=== PATIENT | female | born 1965 | race Caucasian/White ===

== ENCOUNTER 2018-04-27 20:19 | Emergency (ER) | payer MEDICARE, OTHER ==
[2018-04-27 20:29] VITALS: BP 127/84; PULSE 113; RESP 20; TEMP 98.7
--- NOTE | 2018-04-27 22:51 | XR ---
EXAMINATION TYPE: XR Hip LT and AP Pelvis DATE OF EXAM: 04/27/2018 COMPARISON: NONE HISTORY: Left hip pain TECHNIQUE: A single AP view of the pelvis is obtained. Two views of the left hip are obtained. FINDINGS: The pelvic ring is intact. Sacroiliac joints are intact. Proximal left femur and hip joint appear normal for age. IMPRESSION: Negative pelvis and left hip exam. No sign of hip dysplasia.
--- NOTE | 2018-04-27 23:15 | ED ---
General Adult HPI - General Chief complaint: Extremity Injury, Lower Stated complaint: Hip pain Time Seen by Provider: 04/27/18 21:40 Source: patient, family Mode of arrival: ambulatory Limitations: no limitations - History of Present Illness Initial comments: 53-year-old female presenting for evaluation of left hip pain. She states that it occurred while she was getting out of bed 4 days ago and she heard a pop. She's been able to ambulate on it but states since then she is continued to have pain. Pain is in the left lateral aspect of the hip and radiates down her thigh. Ambulation and weightbearing worsen her symptoms and rest and relaxation present. She has been taking all medications without improvement. She has not discussed with her primary care physician or orthopedic surgeon. - Related Data Home Medications Medication Instructions Recorded Confirmed ALPRAZolam [Xanax] 0.25 mg PO BID 07/30/14 08/25/16 HYDROcodone/APAP 10-325MG [[place] 1 tab PO Q4HR PRN 07/30/14 08/25/16 10] Insulin Glargine [Lantus] 50 unit SQ BID 07/30/14 08/25/16 Albuterol Nebulized [Ventolin 2.5 mg INHALATION RT-Q6H PRN 07/19/16 08/25/16 Nebulized] Insulin Lispro [humaLOG Kwikpen] 24 units SQ AC-TID 07/19/16 08/25/16 Insulin Lispro [humaLOG Kwikpen] See Protocol SQ AC-TID 07/19/16 08/25/16 Levothyroxine Sodium [Synthroid] 175 mcg PO DAILY 07/19/16 08/25/16 Previous Rx's Medication Instructions Recorded Ibuprofen [Motrin] 600 mg PO Q6HR PRN #20 tab 07/19/16 Acetaminophen with Codeine 1 tab PO Q4H #20 tab 08/25/16 [Tylenol w/codeine #3] Famotidine [Pepcid] 40 mg PO BID #30 tab 08/25/16 hydrOXYzine HCL [Atarax] 25 mg PO TID #30 tab 08/25/16 Allergies Allergy/AdvReac Type Severity Reaction Status Date / Time azithromycin Allergy Rash/Hives Verified 04/27/18 20:30 erythromycin base Allergy Rash/Hives Verified 08/25/16 08:00 [Erythromycin Base] gabapentin [From Neurontin] Allergy Dyspnea Verified 08/25/16 08:00 pregabalin [From Lyrica] Allergy Rash/Hives Verified 08/25/16 08:00 morphine AdvReac Nausea & Verified 04/27/18 20:30 Vomiting Review of Systems ROS Statement: Those systems with pertinent positive or pertinent negative responses have been documented in the HPI. ROS Other: All systems not noted in ROS Statement are negative. Constitutional: Denies: fever, chills Eyes: Denies: eye pain, vision change ENT: Denies: ear pain, throat pain Respiratory: Denies: cough, dyspnea Cardiovascular: Denies: chest pain, palpitations Endocrine: Denies: fatigue, polydipsia Gastrointestinal: Denies: abdominal pain, nausea, vomiting Genitourinary: Denies: urgency, dysuria Musculoskeletal: Reports: arthralgia (Left hip). Denies: back pain Skin: Denies: rash, lesions Neurological: Denies: headache, weakness Psychiatric: Denies: anxiety, depression Hematological/Lymphatic: Denies: easy bleeding, easy bruising Past Medical History Past Medical History: Asthma, COPD, Diabetes Mellitus, Fibromyalgia, Hearing Disorder / Deafness, Hyperlipidemia, Osteoarthritis (OA), Thyroid Disorder Additional Past Medical History / Comment(s): MIGRAINE HEADACHE, IRRITABLE BOWEL History of Any Multi-Drug Resistant Organisms: MRSA Date of last positivie culture/infection: [id number] MDRO Source:: ABDOMEN Past Surgical History: Hernia Repair, Hysterectomy, Orthopedic Surgery Additional Past Surgical History / Comment(s): CARPAL TUNNEL,KNEE ARTHROSCOPIC, PICC LINE,RIGHT SHOULDER, ablation left thigh Past Anesthesia/Blood Transfusion Reactions: No Reported Reaction Past Psychological History: Anxiety Smoking Status: Former smoker Past Alcohol Use History: None Reported Past Drug Use History: None Reported - Past Family History Father Family Medical History: Cancer General Exam Limitations: no limitations General appearance: alert, in no apparent distress Head exam: Present: atraumatic, normocephalic, normal inspection Eye exam: Present: normal appearance, PERRL, EOMI. Absent: scleral icterus, conjunctival injection, periorbital swelling ENT exam: Present: normal exam, mucous membranes moist Neck exam: Present: normal inspection. Absent: tenderness, meningismus, lymphadenopathy Respiratory exam: Present: normal lung sounds bilaterally. Absent: respiratory distress, wheezes, rales, rhonchi, stridor Cardiovascular Exam: Present: normal rhythm, tachycardia GI/Abdominal exam: Present: soft, normal bowel sounds. Absent: distended, tenderness, guarding, rebound, rigid Rectal exam: Present: deferred Extremities exam: Present: full ROM, tenderness (Lateral aspect of the left hip. No overlying erythema, effusion, or other discoloration. It is not warm to palpation.), normal capillary refill. Absent: normal inspection, pedal edema , joint swelling, calf tenderness Back exam: Present: normal inspection, full ROM Neurological exam: Present: alert, oriented X3 Psychiatric exam: Present: normal affect, normal mood Skin exam: Present: warm, dry, intact Course Vital Signs 04/27/18 20:26 Temperature 98.7 F Pulse Rate 113 H Respiratory 20 Rate Blood Pressure 127/84 O2 Sat by Pulse 97 Oximetry Medical Decision Making - Medical Decision Making 53-year-old female presented for evaluation of left hip pain for the last 4 days. On physical examination she appears to be in no apparent distress and is tachycardic but otherwise vitals are stable. There is tenderness to palpation of the left lateral hip and with active range of motion she has pain however this is been minimal in passive range of motion. Distal pulses, motor function, and sensation are intact. X-ray revealed no significant abnormality of the hip joint and on reevaluation she had no change in her exam. She was informed of all results and through shared decision making it was determined that she be discharged with instructions to follow-up with her primary care physician and orthopedic surgeon. The patient has a pain contract in the lobby given any narcotics however was advised to take anti-inflammatories as this was likely an inflammatory process. Further given return instructions. The patient acknowledged an understanding of all formation provided and agreed with this plan care. Disposition Clinical Impression: Left hip pain Disposition: HOME SELF-CARE Condition: Stable Instructions: Hip Pain (ED) Is patient prescribed a controlled substance at d/c from ED?: No Referrals: Bienvenido Maldonado MD [Primary Care Provider] - 1-2 days Time of Disposition: 23:15
== END 2018-04-27 23:22 | disposition home or self-care (01) ==
LOC: EC 20:19
DX: M25.552 Pain in left hip (principal); J44.9 Chronic obstructive pulmonary disease, unspecified; E11.9 Type 2 diabetes mellitus without complications; M79.7 Fibromyalgia; E07.9 Disorder of thyroid, unspecified; F41.9 Anxiety disorder, unspecified; Z86.14 Personal history of Methicillin resistant Staphylococcus aureus infection; Z87.891 Personal history of nicotine dependence; Z79.4 Long term (current) use of insulin; Z79.899 Other long term (current) drug therapy; Z88.1 Allergy status to other antibiotic agents; Z88.5 Allergy status to narcotic agent; Z88.8 Allergy status to other drugs, medicaments and biological substances
CPT/HCPCS: 73502; 99283

== ENCOUNTER 2018-09-01 22:18 | Emergency (ER) | payer MEDICARE, OTHER ==
[2018-09-01] MEDS ORDERED: KETOROLAC 30 MG/ML 1 ML VIAL IM STA (22:43)
[2018-09-01] MEDS ORDERED: HYDROmorphone 1 MG/ML 1 ML SYRINGE IM STA (22:43)
[2018-09-01] MEDS ORDERED: METHOCARBAMOL 500 MG TAB PO STA (22:44)
[2018-09-01] MEDS ORDERED: LIDOCAINE 5% PATCH TOPICAL STA (22:44)
--- NOTE | 2018-09-01 23:11 | XR ---
EXAMINATION TYPE: XR shoulder complete RT DATE OF EXAM: 09/01/2018 COMPARISON: NONE HISTORY: Right shoulder pain TECHNIQUE: 3 views FINDINGS: There is some calcification in the humeral head consistent with small areas of bone infarct . There is mild spurring of the glenohumeral joint. I see no fracture nor dislocation. Joint spaces a re fairly normal. IMPRESSION: Minor degenerative changes. No fracture.
--- NOTE | 2018-09-01 23:54 | ED ---
Upper Extremity HPI - General Chief Complaint: Extremity Injury, Upper Stated Complaint: Shoulder pain Time Seen by Provider: 09/01/18 22:28 Source: patient, family Mode of arrival: ambulatory Limitations: no limitations - History of Present Illness Initial Comments: Patient is a 53-year-old female presenting for right shoulder discomfort. She states that it has been worsening over the last 3 weeks and she denies any injury. She states that it is getting so bad that she can't sleep. She denies any chest pain, shortness of breath, cough, fever/chills. She called her pain management doctor and they advised her to come to the emergency department if she got no relief on her [place] tens at home. She denies any numbness or paresthesias as well as neck pain and states that the majority of pain is around the shoulder and shoulder blade it is worse with movement. - Related Data Home Medications Medication Instructions Recorded Confirmed ALPRAZolam [Xanax] 0.25 mg PO BID 07/30/14 08/25/16 HYDROcodone/APAP 10-325MG [[place] 1 tab PO Q4HR PRN 07/30/14 08/25/16 10] Insulin Glargine [Lantus] 50 unit SQ BID 07/30/14 08/25/16 Albuterol Nebulized [Ventolin 2.5 mg INHALATION RT-Q6H PRN 07/19/16 08/25/16 Nebulized] Insulin Lispro [humaLOG Kwikpen] 24 units SQ AC-TID 07/19/16 08/25/16 Insulin Lispro [humaLOG Kwikpen] See Protocol SQ AC-TID 07/19/16 08/25/16 Levothyroxine Sodium [Synthroid] 175 mcg PO DAILY 07/19/16 08/25/16 Previous Rx's Medication Instructions Recorded Ibuprofen [Motrin] 600 mg PO Q6HR PRN #20 tab 07/19/16 Acetaminophen with Codeine 1 tab PO Q4H #20 tab 08/25/16 [Tylenol w/codeine #3] Famotidine [Pepcid] 40 mg PO BID #30 tab 08/25/16 hydrOXYzine HCL [Atarax] 25 mg PO TID #30 tab 08/25/16 Lidocaine 5% Patch [Lidoderm] 1 patch TOPICAL DAILY #10 patch 09/02/18 Methocarbamol [Robaxin-750] 750 mg PO TID PRN #21 tablet 09/02/18 Allergies Allergy/AdvReac Type Severity Reaction Status Date / Time azithromycin Allergy Rash/Hives Verified 09/01/18 22:26 erythromycin base Allergy Rash/Hives Verified 09/01/18 22:26 [Erythromycin Base] gabapentin [From Neurontin] Allergy Dyspnea Verified 09/01/18 22:26 pregabalin [From Lyrica] Allergy Rash/Hives Verified 09/01/18 22:26 morphine AdvReac Nausea & Verified 09/01/18 22:26 Vomiting Review of Systems ROS Statement: Those systems with pertinent positive or pertinent negative responses have been documented in the HPI. Constitutional: Negative for chills, fatigue and fever. HENT: Negative for congestion. Respiratory: Negative for chest tightness, shortness of breath and wheezing. Negative for cough Cardiovascular: Negative for chest pain and palpitations. Gastrointestinal: Negative for abdominal pain. Negative for abdominal distention , diarrhea, nausea and vomiting. Genitourinary: Negative for dysuria. Musculoskeletal: Negative for back pain, neck pain and neck stiffness. Positive for right shoulder pain Skin: Negative for color change. Neurological: Negative for dizziness, speech difficulty, weakness and light- headedness. Psychiatric/Behavioral: Negative for agitation and confusion. Negative for anxiety ROS Other: All systems not noted in ROS Statement are negative. Past Medical History Past Medical History: Asthma, COPD, Diabetes Mellitus, Fibromyalgia, Hearing Disorder / Deafness, Hyperlipidemia, Osteoarthritis (OA), Thyroid Disorder Additional Past Medical History / Comment(s): MIGRAINE HEADACHE, IRRITABLE BOWEL History of Any Multi-Drug Resistant Organisms: MRSA Date of last positivie culture/infection: [id number] MDRO Source:: ABDOMEN Past Surgical History: Hernia Repair, Hysterectomy, Orthopedic Surgery Additional Past Surgical History / Comment(s): CARPAL TUNNEL,KNEE ARTHROSCOPIC, PICC LINE,RIGHT SHOULDER, ablation left thigh Past Anesthesia/Blood Transfusion Reactions: No Reported Reaction Past Psychological History: Anxiety Smoking Status: Former smoker Past Alcohol Use History: None Reported Past Drug Use History: None Reported - Past Family History Father Family Medical History: Cancer General Exam - General Exam Comments Initial Comments: Constitutional: Pt is oriented to person, place, and time. Pt appears well- developed and well-nourished. No distress. HENT: Head: Normocephalic and atraumatic. Eyes: EOM are normal. Neck: Normal range of motion. Neck supple. Cardiovascular: Normal rate, regular rhythm, S1 normal, S2 normal and normal heart sounds. Exam reveals no gallop and no friction rub. No murmur heard. Pulmonary/Chest: Effort normal and breath sounds normal. No tachypnea and no bradypnea. No respiratory distress. No wheezes or rales noted. Abdominal: Soft. Bowel sounds are normal. Pt exhibits no shifting dullness, no distension, no pulsatile liver, no fluid wave, no abdominal bruit and no ascites. There is no tenderness. There is no rigidity, no rebound, no guarding, no tenderness at McBurney's point and negative Chen's sign. Musculoskeletal: Decreased range of motion of the right shoulder with mild diffuse tenderness of the shoulder. Decreased abduction passively as well as extension and flexion. No cervical's point tenderness or thoracic spine tenderness Neurological: Pt is alert and oriented to person, place, and time. No cranial nerve deficit. Skin: Skin is warm and dry. No rash noted. Pt is not diaphoretic. No erythema. No pallor. Psychiatric: Pt has a normal mood and affect. Pt behavior is normal. Thought content normal. Limitations: no limitations Course Vital Signs 09/01/18 09/02/18 22:22 00:55 Temperature 98.8 F 97.8 F Pulse Rate 95 93 Respiratory 20 18 Rate Blood Pressure 145/84 127/91 O2 Sat by Pulse 99 97 Oximetry Medical Decision Making - Medical Decision Making X-ray was performed and showed some calcification in the humeral head consistent with small areas of bone infarct. Because of this, CT of the shoulder was performed and showed mild spurring at the before meals joint and minor spurring at the glenohumeral joint with small calcifications in the humeral head that are probably bone islands. No evidence of fractures or other emergent pathology. Patient was given multiple analgesics and stated that the pain was much more improved. Cardiac evaluation was not pursued as this was thought to be very unlikely as the pain was very reproducible on range of motion of the arm and the fact that the patient has a known history of arthritis. Patient was advised to follow-up with pain management as well as PCP in next 1-2 days and/or return to emergency Department symptoms worsen. Patient was agreeable to plan. Disposition Clinical Impression: Right shoulder pain Disposition: HOME SELF-CARE Condition: Good Instructions: Shoulder Pain (ED) Prescriptions: Lidocaine 5% Patch [Lidoderm] 1 patch TOPICAL DAILY #10 patch Methocarbamol [Robaxin-750] 750 mg PO TID PRN #21 tablet PRN Reason: Pain Is patient prescribed a controlled substance at d/c from ED?: No Referrals: Bienvenido Maldonado MD [Primary Care Provider] - 1-2 days Time of Disposition: 00:33
--- NOTE | 2018-09-02 00:24 | CT ---
EXAMINATION TYPE: CT shoulder RT wo con DATE OF EXAM: 09/02/2018 COMPARISON: None HISTORY: No known injury pain to right shoulder CT DLP: 639.10 mGycm Automated exposure control for dose reduction was used. FINDINGS: Multiple axial sections are obtained from the top of the shoulder joint to the mid shaft of the humer us with no contrast. There is mild spurring at the AC joint. There is minor spurring at the glenohumeral joint. There are small calcifications in the humeral head that are probably bone islands. I see no fracture nor disloc ation. The scapula appears intact. The right clavicle appears intact. Visualized right ribs appear in tact. There is narrowing of the glenohumeral joint space. IMPRESSION: MILD OSTEOARTHRITIC CHANGES. NO FRACTURE.
[2018-09-02 00:57] VITALS: BP 127/91; PULSE 93; RESP 18; TEMP 97.8
== END 2018-09-02 00:55 | disposition home or self-care (01) ==
LOC: EC 22:18
DX: M25.511 Pain in right shoulder (principal); M77.8 Other enthesopathies, not elsewhere classified; R93.7 Abnormal findings on diagnostic imaging of other parts of musculoskeletal system; M19.011 Primary osteoarthritis, right shoulder; J44.9 Chronic obstructive pulmonary disease, unspecified; E11.9 Type 2 diabetes mellitus without complications; E07.9 Disorder of thyroid, unspecified; F41.9 Anxiety disorder, unspecified; H91.90 Unspecified hearing loss, unspecified ear; Z87.891 Personal history of nicotine dependence; Z88.1 Allergy status to other antibiotic agents; Z88.5 Allergy status to narcotic agent; Z88.8 Allergy status to other drugs, medicaments and biological substances; Z79.4 Long term (current) use of insulin; Z79.899 Other long term (current) drug therapy; Z86.14 Personal history of Methicillin resistant Staphylococcus aureus infection; Z98.890 Other specified postprocedural states
CPT/HCPCS: 73030; 73200; 99284; 96372 ×2; J1885; J1170

== ENCOUNTER 2021-01-22 15:56 | Emergency (ER) | payer MEDICARE, OTHER ==
[2021-01-22 16:12] VITALS: BP 132/80; PULSE 94; RESP 18; TEMP 98.8
[2021-01-22] MEDS ORDERED: HYDROmorphone 1 MG/ML 1 ML SYRINGE IM STA (16:42)
--- NOTE | 2021-01-22 17:52 | US ---
EXAMINATION TYPE: US venous doppler duplex LE LT DATE OF EXAM: 01/22/2021 5:37 PM COMPARISON: NONE CLINICAL HISTORY: leg pain left. left leg pain SIDE PERFORMED: left TECHNIQUE: The lower extremity deep venous system is examined utilizing real time linear array sonog zoila with graded compression, doppler sonography and color-flow sonography. VESSELS IMAGED: Common Femoral Vein Deep Femoral Vein Greater Saphenous Vein * Femoral Vein Popliteal Vein Small Saphenous Vein * Proximal Calf Veins (* superficial vessels) Left Leg: no evidence of DVT IMPRESSION: No sign of deep vein thrombosis in the left leg.
--- NOTE | 2021-01-22 18:38 | ED ---
Extremity Problem HPI - General Chief complaint: Extremity Problem,Nontraumatic Stated complaint: possible blood clot Source: patient Mode of arrival: ambulatory Limitations: no limitations - History of Present Illness Initial comments: Patient is a 56-year-old female with past medical history of diabetes, COPD, chronic pain on narcotics presents to the emergency room from her podiatry office. States she went to see him today for left calf pain. Describes it as a burning pain which is tender to the touch. He ordered of prescription to get an ultrasound and told her to come to the ER. Patient states the pain has been going on for the past week. Today [place] at home however is not helping her symptoms. She is not pain management contract. Denies history of DVT or PE. No calf swelling. Denies any chest pain or shortness of breath. Patient is not on any anticoagulation. No other alleviating, precipitating or modifying factors - Related Data Home Medications Medication Instructions Recorded Confirmed HYDROcodone/APAP 10-325MG [[place] 1 tab PO TID PRN 07/30/14 01/22/21 10] Levothyroxine Sodium [Synthroid] 175 mcg PO DAILY 07/19/16 01/22/21 Butalb/Acetaminophen/Caffeine 1 cap PO DAILY PRN 01/22/21 01/22/21 [Fioricet 50-300-40 mg Capsule] Fenofibrate Nanocrystallized 145 mg PO DAILY 01/22/21 01/22/21 [Fenofibrate] Insulin Regular, Human [humulin R 15 unit SQ AC-SUPPER 01/22/21 01/22/21 U-500 Kwikpen] Insulin Regular, Human [humulin R 140 unit SQ AC-BRKFST 01/22/21 01/22/21 U-500 Kwikpen] lisinopriL [Zestril] 2.5 mg PO DAILY 01/22/21 01/22/21 rOPINIRole HCL [Requip] 0.5 mg PO HS 01/22/21 01/22/21 traMADol HCL 50 mg PO DAILY 01/22/21 01/22/21 Allergies Allergy/AdvReac Type Severity Reaction Status Date / Time azithromycin Allergy Rash/Hives Verified 01/22/21 17:33 erythromycin base Allergy Rash/Hives Verified 01/22/21 17:33 [Erythromycin Base] gabapentin [From Neurontin] Allergy Dyspnea Verified 01/22/21 17:33 pregabalin [From Lyrica] Allergy Rash/Hives Verified 01/22/21 17:33 morphine AdvReac Nausea & Verified 01/22/21 17:33 Vomiting Review of Systems ROS Statement: Those systems with pertinent positive or pertinent negative responses have been documented in the HPI. ROS Other: All systems not noted in ROS Statement are negative. Past Medical History Past Medical History: Asthma, COPD, Diabetes Mellitus, Fibromyalgia, Hearing Disorder / Deafness, Hyperlipidemia, Osteoarthritis (OA), Thyroid Disorder Additional Past Medical History / Comment(s): MIGRAINE HEADACHE, IRRITABLE BOWEL History of Any Multi-Drug Resistant Organisms: MRSA Date of last positivie culture/infection: [id number] MDRO Source:: ABDOMEN Past Surgical History: Hernia Repair, Hysterectomy, Orthopedic Surgery Additional Past Surgical History / Comment(s): CARPAL TUNNEL,KNEE AR THROSCOPIC,PICC LINE,RIGHT SHOULDER, ablation left thigh Past Anesthesia/Blood Transfusion Reactions: No Reported Reaction Past Psychological History: Anxiety Smoking Status: Current some day smoker Past Alcohol Use History: None Reported Past Drug Use History: None Reported - Past Family History Father Family Medical History: Cancer General Exam Limitations: no limitations General appearance: alert, in no apparent distress Head exam: Present: atraumatic, normocephalic, normal inspection Eye exam: Present: normal appearance, PERRL, EOMI. Absent: scleral icterus, conjunctival injection, periorbital swelling ENT exam: Present: normal exam, mucous membranes moist Neck exam: Present: normal inspection. Absent: tenderness, meningismus, lymphadenopathy Respiratory exam: Present: normal lung sounds bilaterally. Absent: respiratory distress, wheezes, rales, rhonchi, stridor Cardiovascular Exam: Present: regular rate, normal rhythm, normal heart sounds. Absent: systolic murmur, diastolic murmur, rubs, gallop, clicks GI/Abdominal exam: Present: soft, normal bowel sounds. Absent: distended, tenderness, guarding, rebound, rigid Extremities exam: Present: normal inspection, full ROM, normal capillary refill, calf tenderness (left), other (5/5 muscle strength b/l le. 2+ DP and PT pulses b/l. Intact distal sensation). Absent: tenderness, pedal edema, joint swelling Back exam: Present: normal inspection Neurological exam: Present: alert, oriented X3, CN II-XII intact Psychiatric exam: Present: normal affect, normal mood Skin exam: Present: warm, dry, intact, normal color. Absent: rash Course Vital Signs 01/22/21 16:06 Temperature 98.8 F Pulse Rate 94 Respiratory 18 Rate Blood Pressure 132/80 O2 Sat by Pulse 99 Oximetry Medical Decision Making - Medical Decision Making Upon arrival patient is placed into room 28. A thorough history and physical exam is performed. Patient's given 1 mg IM of Dilaudid. Ultrasound is performed patient's lower extremity which fails to reveal no signs of DVT. Results are discussed the patient. Did offer further imaging to include an x- ray however the patient refused. Patient does have follow-up with her pain management doctor on Monday. Instructed to follow-up in regards to this pain for further workup. Return to the emergency room for any new or worsening symptoms. Patient was discharged home in stable condition Disposition Clinical Impression: Left leg pain Disposition: HOME SELF-CARE Condition: Stable Instructions (If sedation given, give patient instructions): Leg Pain (ED) Additional Instructions: Please follow up with you pain management doctor and orthopedics. You were given 1 mg of Dilaudid in the ER. Return to the ED for any new or worsening symptoms. Is patient prescribed a controlled substance at d/c from ED?: No Referrals: Bienvenido Maldonado MD [Primary Care Provider] - 1-2 days Lee Andrews MD [STAFF PHYSICIAN] - 1-2 days Jaya Peralta MD [STAFF PHYSICIAN] - 1-2 days Time of Disposition: 18:38
== END 2021-01-22 18:43 | disposition home or self-care (01) ==
LOC: EC 15:56
DX: M79.662 Pain in left lower leg (principal); E11.9 Type 2 diabetes mellitus without complications; E78.5 Hyperlipidemia, unspecified; J44.9 Chronic obstructive pulmonary disease, unspecified; M19.90 Unspecified osteoarthritis, unspecified site; Z79.899 Other long term (current) drug therapy; Z79.4 Long term (current) use of insulin
CPT/HCPCS: 93971; 99283; 96372; J1170

== ENCOUNTER → 2021-02-19 | Outpatient (CLI) | payer MEDICARE, OTHER ==
[2021-02-19 23:54] LABS: Basophils # (A) 0.05 X 10*3/uL (0.00-0.10); Basophils % (A) 0.5 %; Eosinophils # (A) 0.29 X 10*3/uL (0.04-0.35); HCT 43.2 % (37.2-46.3); HGB 14.1 g/dL (12.0-15.0); Lymphocytes # (A) 1.82 X 10*3/uL (0.90-5.00); Lymphocytes % (A) 18.8 %; MCH 30.3 pg (27.0-32.0); MCHC 32.6 g/dL (32.0-37.0); MCV 92.9 fL (80.0-97.0); Mean Platelet Volume 10.9 fL (9.5-12.2); Monocytes # (A) 0.47 X 10*3/uL (0.20-1.00); Monocytes % (A) 4.9 %; Neutrophils # (A) 7.01 X 10*3/uL (1.80-7.70); Neutrophils % (A) 72.4 %; Platelet Count 233 X 10*3/uL (140-440); RBC 4.65 X 10*6/uL (4.10-5.20); RDW 12.7 % (11.5-14.5); WBC 9.68 X 10*3/uL (4.50-10.00)
[2021-02-20 00:23] LABS: African American GFR (CKD) 94.2 (60.0-200.0); Albumin 4.2 g/dL (3.80-4.90); Anion Gap 11.6 mmol/L (4.00-12.00); BUN/Creat Ratio 18.75 Ratio (12.00-20.00); Carbon Dioxide 27.4 mmol/L (21.6-31.8); Globulin 2.1 g/dL (1.6-3.3); Non-African American GFR(CKD) 81.3 (60.0-200.0); Potassium 4.6 mmol/L (3.5-5.5); Total Bilirubin 0.6 mg/dL (0.3-1.2); Total Protein 6.3 g/dL (6.2-8.2)
== END | disposition home or self-care (01) ==
LOC: LABWHC1 15:12
PROVIDERS: ATTEND Podiatrist
DX: M62.838 Other muscle spasm (principal)
CPT/HCPCS: 36415; 80053; 83036; 85025